=== PATIENT | male | born 1965 ===

== ENCOUNTER 2021-06-16 13:09 | Emergency (ER) | payer MEDICAID ==
[2021-06-16 14:43] VITALS: BP 122/69
--- NOTE | 2021-06-16 17:16 | Emergency Department Report ---
Chief Complaint: Extremity Injury, Lower Stated Complaint: ANKLE SWELLING Time Seen by Provider: 06/16/21 17:11 - HPI History of Present Illness: 55-year-old -[place] Citizen male presents to the emergency room for a 2-month history of left foot pain and mild swelling to his left ankle. Patient denies any injury. Denies any history of diabetes. Patient states he is constantly on his feet. - Exam Vital Signs: Vital Signs 06/16/21 14:41 Temperature 98.1 F Pulse Rate 59 L Respiratory 16 Rate Blood Pressure 122/69 [Right] O2 Sat by Pulse 98 Oximetry Physical Exam: Alert and oriented x3 no acute distress nontoxic in appearance No respiratory distress Regular rate Left foot mild swelling at the ankle nonpitting edema. Feet are very dirty. Full range of motion of ankle and toes, no vascular complications. Amatory without difficulties MSE screening note: Focused history and physical exam performed. Due to findings the following was ordered: 55-year-old -[place] Citizen male presents to the emergency room for a 2-month history of left foot pain and mild swelling to his left ankle. Patient denies any injury. Denies any history of diabetes. Patient states he is constantly on his feet. ED Disposition for MSE Disposition: DC-01 TO HOME OR SELFCARE Is pt being admited?: No Does the pt Need Aspirin: No Condition: Stable Additional Instructions: Take Tylenol or ibuprofen as needed for pain. Follow-up to [facility]. Referrals: [facility] [Provider Group] - 3-5 Days
== END 2021-06-16 17:54 | disposition home or self-care (01) ==
LOC: ED 13:09
DX: M25.572 Pain in left ankle and joints of left foot (principal); M79.89 Other specified soft tissue disorders
CPT/HCPCS: 99282